=== PATIENT | female | born 1985 | race African-American/Black ===

== ENCOUNTER 2017-06-25 11:24 | Emergency (ER) | payer OTHER ==
[2017-06-25 11:31] VITALS: BP 115/75
[2017-06-25] MEDS ORDERED: PENICILLIN V POTASSIUM 500 MG TABLET PO ONE (11:53)
[2017-06-25] MEDS ORDERED: BUPIVACAINE HCL 0.5 % INJ/PF 30 ML SDV INJ ONE (11:53)
--- NOTE | 2017-06-25 11:53 | ER Document Report ---
ED Oral Problem - General Chief Complaint: Mouth Problem Stated Complaint: MOUTH PAIN Time Seen by Provider: 06/25/17 11:46 Notes: Patient is a 31-year-old female presents emergency department complaining of toothache. Patient states she was at the dentist on Wednesday and had a filling in tooth #18. Patient states that over the past 2 days she has had bruising and pain at the site. Otherwise she denies any foul odor, foul drainage, difficulty swallowing, difficulty breathing, difficulty talking, tolerating p.o. without any difficulty. No known drug allergies TRAVEL OUTSIDE OF THE [place] IN LAST 30 DAYS: No - Related Data Allergies/Adverse Reactions: No Known Allergies Allergy (Verified 06/25/17 11:28) Past Medical History - Social History Smoking Status: Unknown if Ever Smoked Family History: Reviewed & Not Pertinent Patient has suicidal ideation: No Patient has homicidal ideation: No Renal/ Medical History: Denies: Hx Peritoneal Dialysis Past Surgical History: Reports: Hx Thyroid Surgery - 2004. Denies: Hx Breast Surgery - 2000, cyst removed bilat - Immunizations Hx Diphtheria, Pertussis, Tetanus Vaccination: Yes - 2009 Review of Systems - Review of Systems Constitutional: No symptoms reported EENT: See HPI Cardiovascular: No symptoms reported Respiratory: No symptoms reported -: Yes All other systems reviewed and negative Physical Exam - Vital signs Vitals: Temp Pulse Resp BP Pulse Ox 98.6 F 74 16 115/75 99 06/25/17 11:29 06/25/17 11:29 06/25/17 11:29 06/25/17 11:29 06/25/17 11:29 - General General appearance: Appears well, Alert In distress: None - HEENT Mouth/Lips: Other - Mild erythema and ecchymosis surrounding tooth 18 without any evidence of abscess. Mucous membranes: Normal Pharynx: Normal. No: Peritonsillar abscess, Retropharyngeal abscess, Potential airway comprom. Neck: Normal, Supple. No: Lymphadenopathy, Neck mass - Respiratory Respiratory status: No respiratory distress Chest status: Nontender Breath sounds: Normal Chest palpation: Normal - Cardiovascular Rhythm: Regular Heart sounds: Normal auscultation, S1 appreciated, S2 appreciated Murmur: No Pulses: Normal: Radial - Neurological Neuro grossly intact: Yes Cognition: Normal Orientation: AAOx4 Marcie Coma Scale Eye Opening: Spontaneous Marcie Coma Scale Verbal: Oriented [place] Coma Scale Motor: Obeys Commands Marcie Coma Scale Total: 15 Speech: Normal Cranial nerves: Normal Cerebellar coordination: Normal Course - Re-evaluation Re-evalutation: 06/25/17 12:06 Presentation is most consistent with likely an infected tooth. Airway is patent. Vitals within normal limits. Patient is able swallow without any difficulty. There is no significant facial swelling. Patient will be started on antibiotics. I've instructed to follow-up with dentistry as earliest ability for definitive management. Return precautions and follow-up recommendations have been discussed at length. - Vital Signs Vital signs: Temp Pulse Resp BP Pulse Ox 98.6 F 74 16 115/75 99 06/25/17 11:29 06/25/17 11:29 06/25/17 11:29 06/25/17 11:29 06/25/17 11:29 Procedures - Additional Procedures dental block Notes: 06/25/17 12:28 infraalveolar dental block left lower jaw 5cc of sensorcaine, no complications, patient pain free Discharge - Discharge Clinical Impression: Toothache Condition: Good Disposition: HOME, SELF-CARE Additional Instructions: You have been seen for dental pain. It is very important that you follow-up with a dentist for definitive care. Please return if you develop fever greater than 101, swelling in your face, vomiting, difficulty breathing or swallowing, or any other symptoms that are concerning to you. For pain you should take ibuprofen 600 mg every 6 hours as needed. Prescriptions: Penicillin V Potassium [Penicillin Vk 500 mg Tablet] 500 mg PO BID #20 tablet Referrals: BUFFY GHOSH FNP-C [Primary Care Provider] - Follow up as needed
== END 2017-06-25 12:20 | disposition home or self-care (01) ==
LOC: ER 11:24
PROC: 3E0T3BZ Introduction of Anesthetic Agent into Peripheral Nerves and Plexi, Percutaneous Approach (ICD-10-PCS; principal; 2017-06-25)
DX: K08.89 Other specified disorders of teeth and supporting structures (principal); Z98.890 Other specified postprocedural states
CPT/HCPCS: 99282